=== PATIENT | female | born 2000 | race American Indian/Alaskan Native ===

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

== ENCOUNTER 2021-01-29 13:52 | Outpatient (CLI) | payer BC, MEDICAID ==
[2021-01-29 14:05] VITALS: BP 121/67
[2021-01-29] MEDS ORDERED: LACTATED RINGERS 500 ML IV ONE (14:15)
== END 2021-01-29 15:20 | disposition home or self-care (01) ==
LOC: TRG 13:52 → APU 13:53 → TRG 15:20
PROVIDERS: ATTEND Obstetrics & Gynecology
DX: Z34.93 Encounter for supervision of normal pregnancy, unspecified, third trimester (principal); Z3A.28 28 weeks gestation of pregnancy
CPT/HCPCS: 36415; 59025; 84112

== ENCOUNTER 2021-01-30 10:29 | Outpatient (CLI) | payer MEDICAID ==
[2021-01-30] MEDS ORDERED: LACTATED RINGERS 500 ML IV ONE (11:00)
--- NOTE | 2021-01-30 12:19 | Event Note ---
Date: 01/30/21 (Decreased movement, vaginal bleeding) Pt is a 20 y.o. @ 29 wks today. She called the office with c/o vaginal bleeding, decreased movement. Pt states that the vaginal bleeding and decreased movement started today. Had an ultrasound in triage that resulted at no placental abruption. Was called by the RN because the patient stated that she was having a lot of vaginal pressure and needing a cervical exam. RN did not feel comfortable checking her d/t her status. Assessment of her cervix was closed/thick/high. She had a category 1 monitor strip throughout her triage stay. She was discharged home in good condition and told to keep her scheduled appointment in the office.
[2021-01-30 12:34] VITALS: BP 95/53
--- NOTE | 2021-01-30 12:47 | Ultrasound Report ---
ULTRASOUND OBSTETRIC LIMITED INDICATION / CLINICAL INFORMATION: r/o placental abruption, well being. Clinical Gestational Age (GA) in weeks, days: 29 weeks 0 days TECHNIQUE: Transabdominal. COMPARISON: None available. FINDINGS: HEART RATE (beats per minute): 145 PRESENTATION: Breech. ADDITIONAL FINDINGS: Anterior/right lateral placenta is free of the os. No evidence of placental abru ption. IMPRESSION: 1. Single live intrauterine in breech presentation. heart rate measures 145 bpm. 2. No significant abnormality. No evidence of placental abruption. Signer Name: Sergey Malone MD Signed: 01/30/2021 12:42 PM Workstation Name: [id number]
== END 2021-01-30 13:20 | disposition home or self-care (01) ==
LOC: TRG 10:29 → APU 10:31 → TRG 13:20
PROVIDERS: ATTEND Obstetrics & Gynecology
DX: Z34.93 Encounter for supervision of normal pregnancy, unspecified, third trimester (principal); Z3A.29 29 weeks gestation of pregnancy
CPT/HCPCS: 59025; 76815

== ENCOUNTER 2021-02-01 03:57 | Outpatient (CLI) | payer MEDICAID ==
[2021-02-01] MEDS ORDERED: LACTATED RINGERS 1,000 ML IV ONE (04:36)
[2021-02-01 04:49] LABS: Mucus,Urine FEW /HPF
[2021-02-01 04:52] LABS: Bilirubin,Urine Negative (Negative); Blood,Urine Negative (Negative); Color,Urine Straw (Yellow); Urobilinogen,Urine < 2.0 mg/dL (<2.0)
[2021-02-01] MEDS ORDERED: TERBUTALINE 1 MG/1 ML INJ SUB-Q SCH (06:00)
--- NOTE | 2021-02-01 06:07 | Event Note ---
Date: 02/01/21 Pt presents to triage with c/o contractions for the last 2 hours and diarrhea this am. Mild contractions palpated s/p 1L LR Bolus; H/O term x1. SVE closed/thick/high. Pt tolerated exam well. POC d/w pt. Questions encouraged. All concerns addressed. Pt verbalizes understanding and agrees to POC. Orders placed in EMR. [facility] precision assembler made aware.
[2021-02-01] MEDS ORDERED: LACTATED RINGERS 1,000 ML IV SCH (06:30)
[2021-02-01 06:50] LABS: Hematocrit 32.1 % (30.3-42.9); Hemoglobin 10.6 gm/dl (10.1-14.3); Mean Corpuscular HGB Conc 33 % (30-34); Mean Corpuscular Volume 88 fl (79-97); Platelet Count 148 K/mm3 (140-440); Red Blood Count 3.63 M/mm3 (3.65-5.03); Red Cell Distribution Width 13.2 % (13.2-15.2)
[2021-02-01 07:13] LABS: Alanine Aminotransferase 11 units/L (7-56); Uric Acid 3.6 mg/dL (3.5-7.6)
[2021-02-01 07:43] VITALS: BP 153/74
== END 2021-02-01 08:56 | disposition home or self-care (01) ==
LOC: TRG 03:57 → APU 03:59 → TRG 08:56
PROVIDERS: ATTEND Student in an Organized Health Care Education/Training Program
DX: O62.9 Abnormality of forces of labor, unspecified (principal); Z3A.29 29 weeks gestation of pregnancy
CPT/HCPCS: 36415; 59025; 81001; 82565; 83615; 84450; 84460; 84550; 85027; 96360; 96361; 96372; J3105; J7120

== ENCOUNTER 2021-02-19 13:15 | Outpatient (CLI) | payer MEDICAID ==
[2021-02-19] MEDS ORDERED: LACTATED RINGERS 500 ML IV ONE (16:24)
[2021-02-19 17:00] LABS: Basophils % (Auto) 0.4 % (0.0-1.8); Eosinophils # (Auto) 0.1 K/mm3 (0.0-0.4); Eosinophils % (Auto) 1.5 % (0.0-4.3); Hemoglobin 10.3 gm/dl (10.1-14.3); Lymphocytes # (Auto) 2.1 K/mm3 (1.2-5.4); Lymphocytes % (Auto) 23.9 % (13.4-35.0); Mean Corpuscular HGB Conc 32 % (30-34); Mean Corpuscular Volume 87 fl (79-97); Monocytes # (Auto) 0.8 K/mm3 (0.0-0.8); Monocytes % (Auto) 8.6 % (0.0-7.3); Platelet Count 162 K/mm3 (140-440); Red Blood Count 3.69 M/mm3 (3.65-5.03); Red Cell Distribution Width 12.9 % (13.2-15.2)
[2021-02-19] MEDS ORDERED: ACETAMINOPHEN 500 MG TAB PO ONE (19:17)
--- NOTE | 2021-02-19 19:34 | Event Note ---
Date: 02/19/21 (Lower abdominal and pelvic pain.) Pt is 20 y.o. that presented to triage with c/o lower abdominal pain. She was found to be rosanna and was given IV fluids. A FFN was sent that resulted as negative. Pt continued with irregular contractions, but refused terb. Cervical exam was cl/th/hi. Discussed third trimester discomforts with the patient. At the end of her triage visit, she stated that she felt much better. We also discussed staying hydrated. Category 1 EFM throughout triage stay. Pt was discharged home in good condition and encouraged to keep her next scheduled appointment.
[2021-02-19 19:44] VITALS: BP 125/63
[2021-02-19] MEDS ORDERED: TERBUTALINE 1 MG/1 ML INJ SUB-Q ONE (19:47)
[2021-02-19] MEDS ORDERED: LACTATED RINGERS 1,000 ML IV ONE (20:27)
[2021-02-19 21:11] LABS: Bilirubin,Urine NEG (Negative); Blood,Urine NEG (Negative); Color,Urine Yellow (Yellow); Hyaline Casts,Urine 1 /LPF; Mucus,Urine FEW /HPF; Protein,Urine <15 mg/dL mg/dL (Negative); Urobilinogen,Urine < 2.0 mg/dL (<2.0)
== END 2021-02-19 22:10 | disposition home or self-care (01) ==
LOC: TRG 13:15 → APU 16:06 → TRG 22:10
PROVIDERS: ATTEND Student in an Organized Health Care Education/Training Program
DX: O26.893 Other specified pregnancy related conditions, third trimester (principal); R10.2 Pelvic and perineal pain; M54.9 Dorsalgia, unspecified; R42 Dizziness and giddiness; Z3A.31 31 weeks gestation of pregnancy
CPT/HCPCS: 36415; 59025; 81001; 82731; 85025; J7120; 96360; 96361

== ENCOUNTER 2021-04-03 13:44 | Outpatient (CLI) | payer MEDICAID ==
[2021-04-03 14:28] VITALS: BP 130/74
[2021-04-03 15:03] LABS: Bilirubin,Urine NEG (Negative); Blood,Urine NEG (Negative); Color,Urine Yellow (Yellow); Protein,Urine <15 mg/dL mg/dL (Negative); Urobilinogen,Urine < 2.0 mg/dL (<2.0)
[2021-04-03] MEDS ORDERED: LACTATED RINGERS 1,000 ML IV ONE (15:48)
[2021-04-03] MEDS ORDERED: ONDANSETRON 4 MG/2 ML INJ IV ONE (15:48)
== END 2021-04-03 16:55 | disposition home or self-care (01) ==
LOC: TRG 13:44 → APU 13:46 → TRG 16:55
PROVIDERS: ATTEND Obstetrics & Gynecology
DX: O21.2 Late vomiting of pregnancy (principal); O62.9 Abnormality of forces of labor, unspecified; O26.893 Other specified pregnancy related conditions, third trimester; R10.9 Unspecified abdominal pain; Z3A.38 38 weeks gestation of pregnancy
CPT/HCPCS: 59025; 81001; 87086; 96361; 96374; J2405; J7120

== ENCOUNTER 2021-04-05 21:38 | Observation (INO) | payer MEDICAID ==
[2021-04-05] MEDS ORDERED: LACTATED RINGERS 1,000 ML IV ONE (22:42)
[2021-04-05] MEDS ORDERED: TERBUTALINE 1 MG/1 ML INJ SUB-Q ONE (22:42)
--- NOTE | 2021-04-06 01:12 | History and Physical Report ---
History of Present Illness Date of examination: 04/06/21 Date of admission: 04/06/2021 Chief complaint: contractions History of present illness: Patient is a 20 yo at 38w3d presenting with contractions. Notes they began this evening at 7 pm. Initially were occurring every 4 minutes, but are now every 1-2 minutes. +FM. Denies vaginal bleeding or leakage of fluid. Past History Past Medical History: no pertinent history Past Surgical History: no surgical history LOT BOSS History: herpes Family/Genetic History: none Social history: no significant social history - Obstetrical History Expected Date of Delivery: 04/17/21 Actual Gestation: 38 Week(s) 3 Day(s) : 3 Para: 1 Hx # Term Pregnancies: 1 Number of Pregnancies: 0 Spontaneous Abortions: 0 Induced : 1 Number of Living Children: 1 Medications and Allergies Allergies Allergy/AdvReac Type Severity Reaction Status Date / Time No Known Allergies Allergy Verified 01/29/21 13:58 Review of Systems All systems: negative Genitourinary: contractions - Vital Signs Vital signs: Vital Signs Pulse Pulse Ox 84 98 04/05/21 22:08 04/05/21 22:08 Temp Pulse Resp BP Pulse Ox 98.4 F 94 H 18 119/74 98 04/05/21 22:10 04/06/21 01:06 04/05/21 22:10 04/05/21 22:10 04/06/21 01:06 - Obstetrical FHR: category 1 Uterine Contraction Monitor Mode: External Cervical Dilatation: 2 Cervical Effacement Percentage: 40 station: -3 Uterine Contraction Frequency (min): q2 with irritability Uterine Contraction Pattern: Regular Results All other labs normal. Assessment and Plan S/p LR bolus with some spacing of contractions, but patient remains uncomfortable Minimal cervical change on reexamination Will admit to observation Will give therapeutic rest Morphine - Patient Problems (1) 38 weeks gestation of Current Visit: Yes Status: Acute (2) Uterine contractions Current Visit: Yes Status: Acute
[2021-04-06] MEDS ORDERED: MORPHINE 4 MG/1 ML INJ IV ONE (01:24)
[2021-04-06] MEDS ORDERED: MORPHINE 4 MG/1 ML INJ IM ONE (01:26)
[2021-04-06] MEDS ORDERED: LACTATED RINGERS 1,000 ML IV SCH (01:30)
[2021-04-06 07:14] VITALS: BP 131/75
--- NOTE | 2021-04-06 07:54 | Discharge Summary ---
Providers - Providers Date of Admission: 04/05/21 22:17 Date of discharge: 04/06/21 Attending physician: EVERT RAMIREZ MD Primary care physician: EVERT RAMIREZ MD Hospitalization Reason for admission: other Discharge diagnosis: other (Undelivered and unchanged cervical exam.) Hospital course: Pt is a 20 y.,o. @ 38+ wks who presented to to triage with c/o contractions. Her cervical exam at that time was 1.5/40/-3. She was admitted for therapeutic rest. She was checked by the RN this AM and her cervical exam is essentially unchanged at 2/50/-2. We discussed discharge home and labor precautions. At the time of discharge there was a category 1 monitor strip with irregularly spaced contractions. Pt denies vaginal bleeding, LOF. There is positive movement. Discussed should vaginal bleeding like a period, decreased movement, LOF, regular painful contractions she will call the benefits consultant provider and come back to triage for an evaluation. Pt verbalized understanding. She was discharged home in good condition. Condition at discharge: Good Disposition: 01 HOME / SELF CARE / HOMELESS Plan - Provider Discharge Summary Additional instructions: [] Smoking cessation referral if applicable(refer to patient education folder for contact #) [] Refer to [facility] Booklet Call your doctor immediately for: * Fever > 100.5 * Heavy vaginal bleeding ( >1 pad per hour) * Severe persistent headache * Shortness of breath * Reddened, hot, painful area to leg or breast * Drainage or odor from incision. * Keep incision clean and dry at all times and follow doctor's instructions regarding bathing/showering - Follow up plan Follow up: EVERT RAMIREZ MD [Primary Care Provider] - 7 Days
== END 2021-04-06 09:09 | disposition home or self-care (01) ==
LOC: TRG 21:38 → APU 21:39 → TRG 22:17 → LD 22:17
PROVIDERS: ADMIT Student in an Organized Health Care Education/Training Program; ATTEND Student in an Organized Health Care Education/Training Program
DX: O62.9 Abnormality of forces of labor, unspecified (principal); Z20.822 Contact with and (suspected) exposure to COVID-19; Z3A.38 38 weeks gestation of pregnancy
CPT/HCPCS: 59025; 96372; 96374; G0378; J2270; J7120; U0003; 96360